=== PATIENT | female | born 1965 | race American Indian/Alaskan Native ===

== ENCOUNTER 2017-07-30 11:38 | Outpatient (CLI) | payer MEDICAID ==
--- NOTE | 2017-07-30 12:53 | Mammography Report ---
BILATERAL DIGITAL SCREENING MAMMOGRAM with CAD: 07/30/17 11:38:00 CLINICAL: Routine screening. COMPARISON:01/10/16 FINDINGS: The breasts are heterogeneously dense, which may obscure small masses. No mass, architectural distortion or suspicious calcifications. IMPRESSION: No mammographic evidence of malignancy. BI-RADS CATEGORY: 1 - - Negative RECOMMENDATION: Routine mammographic screening in one year. COMMENT: Patient follow-up letters are generated by our [employer] application.
== END 2017-07-30 11:39 | disposition home or self-care (01) ==
LOC: MAMMO 11:38
PROVIDERS: ATTEND Nurse Practitioner Family
DX: Z12.31 Encounter for screening mammogram for malignant neoplasm of breast (principal)
CPT/HCPCS: 77067; G0202

== ENCOUNTER 2017-11-07 18:08 | Emergency (ER) | payer MEDICAID ==
[2017-11-07] MEDS ORDERED: BENADRYL IV ONE (19:04)
[2017-11-07] MEDS ORDERED: NACL 0.9% 1000 ML 1,000 ML IV ONE (19:04)
--- NOTE | 2017-11-07 19:20 | Emergency Department Report ---
HPI - General Chief Complaint: Allergic Reaction Time Seen by Provider: 11/07/17 18:58 - HPI HPI: 52-year-old female presents to the emergency department by EMS after she appears to have some type of allergic reaction. The patient was recently started on Bactrim for a urinary tract infection and sinus infection. She received the Bactrim about 2 weeks ago when she was diagnosed but only took about one pill at that time. Today, around 4:30 PM, the patient took a Bactrim as well as some type of "herbs" that support kidney and bladder function. She says right when she took the Bactrim into her mouth she began feeling very nauseated, developed skin redness, started itching and was slightly short of breath. EMS was called and they found the patient to be hypotensive with a blood pressure of 70/30. She was given 2 L of IV fluid and has had some improvement. She says that she still feels "shaky." She also said that she took a tramadol earlier today for her symptoms. However the patient says that she has taken tramadol multiple times in the past as well as these "herbs" and that she feels it is the Bactrim. No recent travel or sick contacts at home. Primary care physician Dr. Chung Agarwal. She has a past medical history of hypertension and Graves' disease. ED Past Medical Hx - Past Medical History Hx Hypertension: Yes Hx Congestive Heart Failure: No Hx Diabetes: No Hx Asthma: No Hx COPD: No Additional medical history: hypothyroid - Social History Smoking Status: Never Smoker Substance Use Type: Alcohol - Medications Home Medications: Home Medications Medication Instructions Recorded Confirmed Last Taken Type amLODIPine [Norvasc] 10 mg PO QAM 07/20/13 06/24/16 Unknown History traMADol [Ultram 50 MG tab] 50 mg PO Q6HR PRN #25 tablet 07/20/13 06/24/16 Unknown Rx lamoTRIgine [LaMICtal] 200 mg PO QDAY 06/24/16 06/24/16 Unknown History Famotidine [Pepcid] 20 mg PO BID #30 tablet 06/25/16 Unknown Rx Ibuprofen [Motrin] 600 mg PO Q8H PRN #20 tablet 06/25/16 Unknown Rx Levothyroxine Sodium [Synthroid] 175 mcg PO QDAY #30 tab 06/25/16 Unknown Rx ED Review of Systems ROS: Stated complaint: WEAKNESS/HYPOTENSION Other details as noted in HPI Comment: All other systems reviewed and negative Constitutional: denies: chills, fever Eyes: denies: eye pain, eye discharge, vision change ENT: denies: ear pain, throat pain Respiratory: denies: cough, shortness of breath, wheezing Cardiovascular: denies: chest pain, palpitations Gastrointestinal: nausea. denies: vomiting Genitourinary: denies: urgency, dysuria, discharge Musculoskeletal: denies: back pain, joint swelling, arthralgia Skin: change in color, pruritus Neurological: other (dizzy, shaky). denies: headache Physical Exam - Physical Exam Vital Signs: Vital Signs 11/07/17 18:18 Temperature 98.2 F Pulse Rate 82 Respiratory 16 Rate Blood Pressure 107/65 [Right] O2 Sat by Pulse 96 Oximetry Physical Exam: GENERAL: The patient is well-developed well-nourished. HENT: Normocephalic. Atraumatic. Patient has moist mucous membranes. EYES: Extraocular motions are intact. Pupils equal reactive to light bilaterally. NECK: Supple. Trachea is midline. CHEST/LUNGS: Clear to auscultation. There is no respiratory distress noted. HEART/CARDIOVASCULAR: Regular. There is no tachycardia. There is no murmur. ABDOMEN: Abdomen is soft, nontender. Patient has normal bowel sounds. There is no abdominal distention. SKIN: Skin is warm and dry. NEURO: The patient is awake, alert, and oriented. The patient is cooperative. The patient has no focal neurologic deficits. The patient has normal speech. MUSCULOSKELETAL: There is no tenderness or deformity. There is no limitation range of motion. There is no evidence of acute injury. ED Course Vital Signs 11/07/17 18:18 Temperature 98.2 F Pulse Rate 82 Respiratory 16 Rate Blood Pressure 107/65 [Right] O2 Sat by Pulse 96 Oximetry ED Medical Decision Making - Lab Data Result diagrams: 11/07/17 19:11 11/07/17 19:11 - Medical Decision Making The patient was monitored in the emergency department for about 5 hours and she says she is feeling much better. She no longer has any nausea, shakiness, dizziness or any signs or symptoms of allergic reaction. Her blood pressure has been checked numerous times and her systolic has never gone below 100 since she has been here. Her labs are mostly unremarkable. However she did have elevated blood sugar of 266 without signs of diabetic ketoacidosis. She had an elevated TSH but a normal T4 level. Patient was seen ambulatory in the emergency department and appeared stable while doing so. Her urinalysis did not show any signs of urinary tract infection and the patient does not appear consistent with a sinusitis. Not only will she be listing sulfa as an allergy in the future, I do not think she needs any replacement antibiotic at this time. As I could not 100% tell her that the herbal supplement or the tramadol was not a cause of her allergic reaction, I recommended staying away from these medications as well. She will return to the ER with any worsening of her symptoms or any acute distress. - Differential Diagnosis allergic reaction, angioedema, anaphylaxis Critical Care Time: No Critical care attestation.: If time is entered above; I have spent that time in minutes in the direct care of this critically ill patient, excluding procedure time. ED Disposition Clinical Impression: Hyperglycemia Allergic reaction Qualifiers: Encounter type: initial encounter Qualified Code(s): T78.40XA - Allergy, unspecified, initial encounter Disposition: DC-01 TO HOME OR SELFCARE Is pt being admited?: No Condition: Stable Instructions: Antibiotic Medication Allergy (ED) Additional Instructions: Please do not take anymore of the Bactrim and from now on I would add Bactrim and/or sulfa to your allergy lists. Return to the emergency Department with any worsening of your symptoms or any acute distress. Follow-up with your primary care physician. Referrals: PRIMARY CAREMD [Primary Care Provider] - 3-5 Days Time of Disposition: 21:37
[2017-11-07 19:31] LABS: Eosinophils # (Auto) 0.1 K/mm3 (0.0-0.4); Eosinophils % (Auto) 0.6 % (0.0-4.3); Hematocrit 39.2 % (30.3-42.9); Hemoglobin 12.8 gm/dl (10.1-14.3); Lymphocytes # (Auto) 1.2 K/mm3 (1.2-5.4); Lymphocytes % (Auto) 9.3 % (13.4-35.0); Mean Corpuscular HGB Conc 33 % (30-34); Mean Corpuscular Hemoglobin 28 pg (28-32); Mean Corpuscular Volume 85 fl (79-97); Monocytes # (Auto) 0.3 K/mm3 (0.0-0.8); Monocytes % (Auto) 2.3 % (0.0-7.3); Platelet Count 339 K/mm3 (140-440); Red Cell Distribution Width 14.8 % (13.2-15.2)
[2017-11-07 19:35] LABS: BUN/Creatinine Ratio 14; Blood Urea Nitrogen 11 mg/dL (7-17); Calcium 7.7 mg/dL (8.4-10.2)
[2017-11-07 19:36] LABS: Hemolysis Index 5
[2017-11-07 21:09] LABS: Bilirubin,Urine NEG (Negative); Blood,Urine NEG (Negative); Color,Urine Straw (Yellow); Protein,Urine <15 mg/dL mg/dL (Negative); RBC,Urine < 1.0 /HPF (0.0-6.0); Urobilinogen,Urine < 2.0 mg/dL (<2.0); WBC,Urine < 1.0 /HPF (0.0-6.0)
[2017-11-07 22:02] VITALS: BP 114/68
== END 2017-11-07 22:04 | disposition home or self-care (01) ==
LOC: ED 18:08
DX: R73.9 Hyperglycemia, unspecified (principal); T78.40XA Allergy, unspecified, initial encounter; I10 Essential (primary) hypertension; Z88.0 Allergy status to penicillin; Z88.1 Allergy status to other antibiotic agents; Z88.2 Allergy status to sulfonamides; Z88.8 Allergy status to other drugs, medicaments and biological substances
CPT/HCPCS: 36415; 80048; 81001; 84436; 84443; 84481; 85025; 96361; 96374; 99284; J1200; J7030

== ENCOUNTER 2018-11-12 11:34 | Outpatient (CLI) | payer MEDICAID ==
--- NOTE | 2018-11-12 15:22 | Mammography Report ---
BILATERAL DIGITAL SCREENING MAMMOGRAM with CAD: 11/12/18 11:34:00 CLINICAL: Routine screening. COMPARISON:07/30/17 FINDINGS: The breasts are heterogeneously dense, which may obscure small masses. No mass, architectural distortion or suspicious calcifications. IMPRESSION: No mammographic evidence of malignancy. BI-RADS CATEGORY: 1 - - Negative RECOMMENDATION: Routine mammographic screening in one year. COMMENT: Patient follow-up letters are generated by our [employer] application.
== END 2018-11-12 11:35 | disposition home or self-care (01) ==
LOC: MAMMO 11:34
PROVIDERS: ATTEND Nurse Practitioner Family
DX: Z12.31 Encounter for screening mammogram for malignant neoplasm of breast (principal); E03.9 Hypothyroidism, unspecified; I10 Essential (primary) hypertension; E78.5 Hyperlipidemia, unspecified; K21.9 Gastro-esophageal reflux disease without esophagitis
CPT/HCPCS: 77067